=== PATIENT | female | born 1955 | race African-American/Black ===

== ENCOUNTER 2019-07-29 13:22 | Outpatient (CLI) | payer OTHER, SELFPAY ==
--- NOTE | 2019-07-29 | ECHO_ITS ---
Patient Info Name: JASMYN DIAZ Age: 64 years : 1955 Gender: Female Ht: 59 in Wt: 110 lbs BSA: 1.45 m2 HR: 90 bpm BP: 160 / 81 mmHg Technical Quality: Good Exam Date: 07/29/2019 1:45 PM Exam Location: [facility] Patient Status: Outpatient Admit Date: 07/29/2019 Staff Ordering Physician: Jack, Kellie ZUÑIGA Rad Tech: Uriel Martinez, ROSA ISELA, RT Attending Provider: Jack, Kellie ZUÑIGA Exam Type: CA echo doppler color flow Study Info Indications R06.02 - Shortness of breath Complete two-dimensional, color flow and Doppler transthoracic echocardiogram is performed. Summary 1. Left ventricular chamber dimension is normal. 2. Left ventricular systolic function is normal, estimated at 60-65%. 3. There is mildly increased left ventricular wall thickness. 4. The left ventricular diastolic function is grade I diastolic dysfunction. 5. E/e' 10 is mildly elevated. 6. Global longitudinal strain is abnormal at -13.9%. 7. There is mild aortic valve regurgitation. 8. There is trace tricuspid valve regurgitation. 9. RVSP is not calculated due an inadequate TR jet. Left Ventricle E/e' 10 is mildly elevated. Global longitudinal strain is abnormal at -13.9%. Left ventricular chamber dimension is normal. Left ventricular systolic function is normal, estimated at 60-65%. There is mildly increased left ventricular wall thickness. The left ventricular diastolic function is grade I diastolic dysfunction. Right Ventricle Right ventricular chamber dimension is normal. Right ventricular systolic function is normal. Left Atria Left atrial chamber dimension is normal. Right Atria Right atrial chamber dimension is normal. Aortic Valve The aortic valve is trileaflet. There is no aortic valve stenosis. There is mild aortic valve regurgitation. Pulmonic Valve There is no pulmonic regurgitation. Mitral Valve There is no mitral valve stenosis. There is no mitral valve regurgitation. Tricuspid Valve RVSP is not calculated due an inadequate TR jet. There is trace tricuspid valve regurgitation. Pericardium/Pleural There is no pericardial effusion. Inferior Vena Cava Normal inferior vena cava with >50% collapse upon inspiration consistent with normal right atrial pressure, 5 mmHg. Aorta The aortic root size at the sinus of Valsalva is normal. Left Ventricular Outflow Tract Name Value Normal LVOT 2D LVOT Diameter 1.8 cm LVOT Doppler LVOT Peak Gradient 6 mmHg LVOT Mean Gradient 3 mmHg LVOT VTI 23 cm LVOT VTI/AV VTI Ratio 0.9 LVOT Stroke Volume 57 ml LVOT CO 5.0 l/min LVOT CI 3.5 l/min/m2 Pulmonic Valve Name Value Normal PV Doppler
== END 2019-07-29 13:23 | disposition home or self-care (01) ==
PROVIDERS: PCP Nurse Practitioner Gerontology; Visit Provider Nurse Practitioner Gerontology
DX: I27.20 Pulmonary hypertension, unspecified (principal); I35.1 Nonrheumatic aortic (valve) insufficiency
CPT/HCPCS: 93306